=== PATIENT | male | born 1950 | race Caucasian/White ===

== ENCOUNTER 2017-01-02 10:42 | Observation (INO) | payer OTHER ==
[2017-01-02] MEDS ORDERED: Clopidogrel 75 MG Tab PO ONE (10:48)
[2017-01-02] MEDS ORDERED: Metoprolol Tartrate 5 MG/5 ML SDV IVPUSH ONE (10:48)
[2017-01-02] MEDS ORDERED: Aspirin 81 MG Tab.Chew CHEW ONE (10:48)
[2017-01-02] MEDS ORDERED: Sodium Chloride 0.9% 10 ML Syringe FLUSH PRN ×2 (10:48→13:09)
[2017-01-02] MEDS ORDERED: Famotidine 20 MG/2 ML SDV IVPUSH ONE (10:48)
--- NOTE | 2017-01-02 10:48 | EDM.PDOC ---
ED HISTORY OF PRESENT ILLNESS - General Chief Complaint: Chest Pain Stated Complaint: Chest tingling, dizzy, nausea Time Seen by Provider: 01/02/17 10:48 Source of Information: Reports: Patient, Old records ([facility] EMR. No paper hospital chart available.) History Limitations: Reports: No limitations - History of Present Illness INITIAL COMMENTS - FREE TEXT/NARRATIVE: Patient drove himself to the emergency room via private automobile for evaluation of nonspecific left-sided 5/10 chest pain/"prickly" sensation, which started at about 04:00 a.m. this morning at home. [facility] [place] and was advised to take aspirin and call 911, although he did not do so to this point. The above symptoms were associated with mild to moderate diaphoresis, heart flutter, nausea, and dizziness with some nausea at about 4 a.m. yesterday but no chest pain at that time. The patient denies any other chest pain/pressure , orthostasis, orthopnea,paresthesias, recent decreased exercise tolerance, or any other anginal-type symptoms, including no radiation of his chest discomfort. No recent history of abdominal pain, emesis, melena, gross hematochezia, or any food intolerance, including fatty foods, etc., however he did have 4 loose stools earlier this morning and did have some heartburn-type symptoms during the last couple of days, which was relieved by OTC antacids. No known exposure to infection, food poisoning, etc. The patient also denies any recent fever, cough, wheezing, dyspnea, etc.. His chest pain has completely resolved on arrival symptoms lasting for about 10 minutes. He did receive his influenza booster this season Symptom Onset Date: 01/02/17 Symptom Onset Time: 04:00 Timing/Duration: Reports: Improving Severity: moderate Location, General: Reports: chest. Denies: head, face, neck, abdomen, back, upper extremity, left, upper extremity, right, radiates to: Quality: Reports: Other (As above) Improves with: Reports: None Worsens with: Reports: None Context, General: Reports: Other (As above with symptoms starting at rest) Associated Symptoms (General): Reports: chest pain, diaphoresis, nausea/ vomiting (No emesis). Denies: confusion, cough, fever/chills, loss of appetite , malaise, shortness of breath, syncope, weakness Treatments INVE[employer]IGATION DIVISION [employer]GE[employer]: Reports: Other (see below) (None) - Related Data Allergies/ADRs: Allergies Allergy/AdvReac Type Severity Reaction Status Date / Time No Known Allergies Allergy Verified 01/02/17 12:12 Home Meds: Home Meds Finasteride [Proscar] 5 mg PO DAILY 01/02/17 [History] Ibuprofen [Advil] 400 mg PO Q6H PRN 01/02/17 [History] Lovastatin 60 mg PO BEDTIME 01/02/17 [History] Past Medical History HEENT History: Reports: Hard of hearing, Impaired vision, Other (see below). Denies: Allergic rhinitis, Cataract, Glaucoma, Macular degeneration, Retinal detachment Other HEENT History: Patient was glasses, no hearing aid therapy with probable beginning presbycusis Cardiovascular History: Reports: High cholesterol. Denies: Aneurysm, Arrhythmia , Blood clots/VTE/DVT, CAD, Heart murmur, Hypertension, SC, Pacemaker, PVD, Syncope Respiratory History: Reports: Intubation, previous, Other (see below). Denies: Asthma, Bronchitis, recurrent, COPD, PE, Pneumonia, recurrent, Pneumothorax, Sleep apnea Other Respiratory History: Pediatric surgery as below Gastrointestinal History: Reports: Colon polyp, GERD, Other (see below). 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 Denies: BPH, Chronic renal insuffiency, Renal calculus, Retention, urinary, STD, Urinary incontinence, UTI, recurrent Musculoskeletal History: Reports: Back pain, chronic, Osteoarthritis. Denies: Arthritis, Fracture, Gout, Neck pain, chronic, RA, SLE Neurological History: Reports: None. Denies: Cerebral aneurysms, Concussion, CVA, Head trauma, Migraines, MS, Parkinson's, Seizure, TIA Psychiatric History: Reports: None. Denies: Abuse, victim of, ADD, ADHD, Addiction, Anxiety, Dementia, Depression, Emotional problems, PTSD, Suicide attempt, Suicidal ideation Endocrine/Metabolic History: Reports: None. Denies: Diabetes, type I, Diabetes , type II, Hypothyroidism, IDDM Hematologic History: Reports: None. Denies: Anemia, Blood transfusion(s), Iron deficiency Immunologic History: Reports: None. Denies: AIDS, HIV, SLE Oncologic (Cancer) History: Reports: None. Denies: Basal cell carcinoma, Colon , Hodgkin's Lymphoma, Leukemia, Malignant melanoma, Non-Hodgkin's Lymphoma, Prostate, Squamous cell carcinoma Dermatologic History: Reports: None. Denies: Eczema, Psoriasis - Infectious Disease History Infectious Disease History: Reports: Chicken pox. Denies: C-difficile, Measles , Meningitis, Mononucleosis, MRSA, Mumps, Pertussis (whooping cough), Rheumatic Fever, Rubella, Scarlet fever, TB, VRE - Past Surgical History Head Surgeries/Procedures: Reports: None HEENT Surgical History: Reports: Naso-sinus surgery, Other (see below). Denies : Adenoidectomy, Cataract surgery, Eye surgery, Laser surgery, LASIK, Myringotomy w tube(s), Oral surgery, Tonsillectomy Other HEENT Surgeries/Procedures: Nasal septal orifice repair in about 2006 Cardiovascular Surgical History: Reports: None. Denies: Varicose, Vascular surgery Respiratory Surgical History: Reports: None. Denies: Lung Biopsies, Thoracentesis GI Surgical History: Reports: Appendectomy, Colon, Other (see below). Denies: Cholecystectomy, EGD, Hernia, abdominal, Hernia, inguinal, Hernia repair/other, Polypectomy Other GI Surgeries/Procedures: Appendectomy at age 22, colonoscopy in 2009 and in 2014 with polypectomies with each procedure for benign disease, esophageal repair for esophageal aplasia/hypoplasia shortly after Male Surgical History: Reports: Circumcision, Vasectomy, Other (see below). Denies: TURP-Transurethral resection of prostate Other Male Surgeries/Procedures: vasectomy in the 1980s, circumcision as an Endocrine Surgical History: Reports: None Neurological Surgical History: Reports: None. Denies: C-Spine, Discectomy, Laminectomy, Lumbar spine, Spinal fusion, Vertebroplasty Musculoskeletal Surgical History: Reports: None. Denies: Arthroscopic procedure , Carpal tunnel, Ganglion cyst, Joint replacement, ORIF, Shoulder surgery Oncologic Surgical History: Reports: None Dermatological Surgical History: Reports: None - Past Imaging History Past Imaging History: Reports: Sleep study (In about 2011 which was negative) Social & Family History - Family History HEENT: Reports: None. Denies: Allergic rhinitis, Glaucoma, Macular degeneration , Retinal detachment Cardiac: Reports: CAD, Hypertension, Other (see below). Denies: Afib, Aneurysm , Arrhythmia, Blood clots/VTE/DVT, Syncope Other Cardiac Family History: Father with fatal unknown type of heart disease at age unknown, father with hypertension Respiratory: Reports: COPD, Other (see below). Denies: PE, Sleep apnea Other Respiratory Family Hisory: Mother with COPD with no history of tobacco use with maternal grandfather with COPD however he did use tobacco GI: Reports: None. Denies: Celiac disease, Cholelithiasis, Colon polyps, GERD, GI bleed, Inflammatory bowel disease, Irritable bowel syndrome, PUD : Reports: None. Denies: Dialysis, Renal calculus, Renal disease/ insufficiency OBGYN: Reports: None Musculoskeletal: Reports: None. Denies: Gout, RA, SLE Neurological: Reports: TIA, Other (see below). Denies: Alzheimers disease, Cerebral aneurysms, CVA, Dementia, MS, Parkinson's, Seizure Other Neurological Family History: Father with TIAs Psychiatric: Reports: None. Denies: Abuse, victim of, ADD, ADHD, Anxiety, Depression, Psych hospitalization(s), PTSD, Suicide attempt Endocrine/Metabolic: Reports: Diabetes, type II, Other (see below). Denies: Diabetes, type I, Hypothyroidism, IDDM Other Endocrine/Metabolic Family History: Maternal grandmother with diabetes mellitus - Tobacco Use Smoking Status *Q: Never Smoker Smoking Cessation Information Provided To Patient: No Second Hand Smoke Exposure: No Second Hand Smoke Education Provided: No - Caffeine Use Caffeine Use: Reports: Coffee (3 cups per day), Soda (2 sodas per day). Denies : Energy drinks, Tea - Alcohol Use Alcohol Use History: Yes Days Per Week of Alcohol Use: 0 (No previous DWIs, problems with alcohol abuse, etc.) Number of Drinks Per Day: 2 (Usually mixed drinks about every 2 months) Total Drinks Per Week: 0 Alcohol Use in Last Twelve Months: Yes Alcohol Use Frequency: Socially - Recreational Drug Use Recreational Drug Use: No Drug Use in Last 12 Months: No Recreational Drug Type: Denies: Amphetamines (Speed), Cocaine, Heroin, Inhalants (Glues, Solvents, Aerosols), LSD (Acid), Marijuana/Hashish, Methamphetamine, Morphine - Living Situation & Occupation Living situation: Reports: (1975, 3 children), with family () Occupation: employed (White) ED ROS GENERAL - Review of Systems Review Of Systems: See Below Constitutional: Reports: diaphoresis. Denies: fever, chills, malaise, weakness , fatigue, night sweats, decreased appetite, weight loss, weight gain HEENT: Reports: Glasses. Denies: Contact Lenses, Dental pain, Ear discharge, Ear pain, Eye discharge, Throat pain, Throat swelling, Vertigo, Vision change Respiratory: Reports: No Symptoms. Denies: Shortness of Breath, Wheezing, Pleuritic Chest Pain, Cough, Sputum Cardiovascular: Reports: Chest pain, Lightheadedness, Palpitations. Denies: Blood pressure problem, Claudication, Dyspnea on exertion, Edema, Orthopnea, Syncope Endocrine: Reports: no symptoms. Denies: fatigue GI/Abdominal: Reports: Diarrhea, Nausea. Denies: Abdominal pain, Anorexia, Black stool, Bloody stool, Constipation, Decreased appetite, Difficulty swallowing, Distension, Flatus, Hematemesis, Hematochezia, Melena, Stool incontinence, Vomiting : Reports: no symptoms. Denies: discharge, dysuria, flank pain, hematuria, incontinence, pain, urgency, urinary retention Musculoskeletal: Reports: no symptoms. Denies: neck pain, shoulder pain, arm pain, back pain, leg pain Skin: Reports: diaphoresis. Denies: pallor, bruising, pruritis Neurological: Reports: No Symptoms, Dizziness. Denies: Confusion, Headache, Numbness, Paresthesia, Tingling, Weakness Psychiatric: Reports: No symptoms. Denies: Agitation, Anxiety, Confusion, Depression Hematologic/Lymphatic: Reports: no symptoms Immunologic: Reports: no symptoms ED EXAM, GENERAL - Physical Exam Exam: See Below Exam Limited By: No limitations General Appearance: alert, WD/WN, no apparent distress Eye Exam: bilateral eye: EOMI, normal inspection (No nystagmus), PERRL Ears: normal external exam, normal canal, hearing grossly normal, normal TMs Nose: normal inspection, normal mucosa, no blood Throat/Mouth: Normal inspection, Normal lips, Normal teeth, Normal gums, Normal oropharynx, Normal voice, No airway compromise. No: Dysphagia, Inflammation Head: atraumatic, normocephalic. No: facial swelling, facial tenderness, sinus tenderness Neck: normal inspection, supple, non-tender, full range of motion. No: carotid bruit, lymphadenopathy (L), lymphadenopathy (R), thyromegaly Respiratory/Chest: no respiratory distress, lungs clear, normal breath sounds, no accessory muscle use, chest non-tender. No: rales, pleural rub Cardiovascular: normal peripheral pulses, regular rate, rhythm, no edema, no gallop, no JVD, no murmur, no rub. No: gallop/S3, gallop/S4, friction rub Peripheral Pulses: 4+: radial (L), radial (R), dorsalis pedis (L), dorsalis pedis (R) GI/Abdominal: normal bowel sounds, soft, non tender, no organomegaly, no distention, no abnormal bruit, no mass. No: guarding (Male) Exam: Deferred Rectal (Males) Exam: Deferred Back Exam: normal inspection, full range of motion. No: CVA tenderness (L), CVA tenderness (R), muscle spasm Extremities: normal inspection, normal range of motion, non-tender, no pedal edema, normal capillary refill. No: pedal edema, Mc's Sign Neurological: alert, oriented, CN II-XII intact, normal cognition, normal gait, normal reflexes (Negative Babinski's), no motor/sensory deficits Psychiatric: normal affect, normal mood Skin Exam: Warm, Dry, Intact, Normal color, No rash. No: Diaphoretic, Ecchymosis, Jaundice, Pallor, Wound/incision Lymphatic: no adenopathy EKG INTERPRETATION EKG Date: 01/02/17 Time: 10:48 Rhythm: NSR Rate (beats/min): 87 [place]ley: normal (Left cardiac axis) P-wave: enlarged (Moderate diffuse biphasic P waves with extreme poor R-wave progression anteriorly) QRS: RBBB (QRS interval of 0.12 seconds [place] a complete right bundle branch block/repolarization changes with T-wave inversion in lead 3) ST-T: normal QT: normal MI/PQ Interval: 0.17 seconds Comparison: NA - no prior EKG EKG Interpretation Comments: 1. No acute ischemic change 2. Probable left atrial enlargement 3. Complete right bundle branch Course - Vital Signs Last Recorded V/S: Last Vital Signs Temp 37.0 C 01/02/17 11:55 Pulse 81 01/02/17 11:55 Resp 27 H 01/02/17 11:55 BP 122/70 01/02/17 11:55 Pulse Ox 96 01/02/17 11:55 Vital Signs - 24 hr 01/02/17 01/02/17 01/02/17 10:43 10:48 10:55 Temperature [ 37.0 C Oral] Pulse, Peripheral Pulse, 87 90 93 Peripheral [ Right Pulse Oximetry] Respiratory 23 H 20 22 H Rate Blood Pressure Blood Pressure 149/69 H 130/71 130/71 [Right Upper Arm] O2 Sat by Pulse 95 98 96 Oximetry O2 Sat by Pulse 96 Oximetry [ Nasal Cannula] 01/02/17 01/02/17 01/02/17 11:00 11:10 11:25 Temperature [ Oral] Pulse, 93 Peripheral Pulse, 80 81 Peripheral [ Right Pulse Oximetry] Respiratory 28 H 28 H Rate Blood Pressure 130/71 Blood Pressure 130/72 122/71 [Right Upper Arm] O2 Sat by Pulse 97 97 Oximetry O2 Sat by Pulse Oximetry [ Nasal Cannula] 01/02/17 01/02/17 11:40 11:55 Temperature [ 37.0 C Oral] Pulse, Peripheral Pulse, 80 81 Peripheral [ Right Pulse Oximetry] Respiratory 26 H 27 H Rate Blood Pressure Blood Pressure 122/64 122/70 [Right Upper Arm] O2 Sat by Pulse 97 96 Oximetry O2 Sat by Pulse Oximetry [ Nasal Cannula] - Orders/Labs/Meds Orders: Active Orders 24 hr Category Date Time Status Cardiac Monitoring [RC] . DIRECTED Care 01/02/17 10:48 Active EKG Documentation Completion [RC] ASDIRECTED Care 01/02/17 10:48 Active Oxygen Therapy, ED [RC] CONTINUOUS Care 01/02/17 10:48 Active Peripheral IV Care [RC] . DIRECTED Care 01/02/17 10:48 Active Pulse Oximetry [RC] CONTINUOUS Care 01/02/17 10:48 Active Up With Assistance [RC] PFP Care 01/02/17 10:48 Active Vital Signs [RC] PFP Care 01/02/17 10:48 Active Nothing per Oral Now Diet [DIET] Diet 01/02/17 Breakfast Active Chest 1V Frontal [CR] Stat Exams 01/02/17 10:48 Taken Sodium Chloride 0.9% [Saline Flush] Med 01/02/17 10:48 Active 10 ml FLUSH ASDIRECTED PRN Obtain Past Medical Record [OM.PC] Urgent Oth 01/02/17 10:48 Active Peripheral IV Insertion Adult [OM.PC] Stat Oth 01/02/17 10:48 Ordered Resuscitation Status Stat Resus Stat 01/02/17 10:48 Ordered Medication Orders Sodium Chloride (Saline Flush) 10 ml FLUSH ASDIRECTED PRN PRN Reason: Keep Vein Open Last Admin: 01/02/17 11:11 Dose: 10 ml Labs: Laboratory Tests 01/02/17 01/02/17 01/02/17 Range/Units 10:55 10:55 10:55 WBC 8.7 (4.0-10.2) K/uL RBC 4.96 (4.33-5.41) M/uL Hgb 15.3 (13.1-16.8) g/dL Hct 45.8 (39.0-49.0) % MCV 92.3 (84.0-98.0) fL MCH 30.8 (28.2-33.3) pg MCHC 33.4 (31.7-36.0) g/dL RDW 13.1 (11.2-14.1) % Plt Count 138 L (150-350) K/uL Neut % (Auto) 89.0 H (45.0-80.0) % Lymph % (Auto) 6.2 L (10.0-50.0) % Trigg % (Auto) 4.1 (2.0-14.0) % Eos % (Auto) 0.6 (0.0-5.0) % Baso % (Auto) 0.1 (0.0-2.0) % Neut # (Auto) 7.73 H (1.40-7.00) K/uL Lymph # (Auto) 0.54 (0.50-3.50) K/uL Trigg # (Auto) 0.36 (0.00-1.00) K/uL Eos # (Auto) 0.05 (0.00-0.50) K/uL Baso # (Auto) 0.01 (0.00-0.20) K/uL PT 10.3 (9.8-11.7) SEC INR 1.0 APTT 25.4 (23.5-30.0) SEC D-Dimer, Quantitative 131 (0-400) ng/mL Sodium (136-145) mmol/L Potassium (3.5-5.1) mmol/L Chloride (98-107) mmol/L Carbon Dioxide (21.0-32.0) mmol/L BUN (7-18) mg/dL Creatinine (0.51-1.17) mg/dL Est Cr Clr Drug Dosing Estimated GFR (MDRD) mL/min Glucose (74-106) mg/dL Lactic Acid (0.4-2.0) mmol/L Uric Acid (2.6-7.2) mg/dL Calcium (8.5-10.1) mg/dL Magnesium (1.8-2.4) mg/dL Total Bilirubin (0.2-1.0) mg/dL AST (15-37) U/L ALT (12-78) U/L Alkaline Phosphatase (46-116) IU/L Creatine Kinase (26-308) U/L Creatine Kinase Index (0.0-2.5) % CK-MB (CK-2) (0.00-3.60) ng/mL Troponin I (0.000-0.056) ng/mL [id number] Pept (0-125) pg/mL Total Protein (6.4-8.2) g/dL Albumin (3.4-5.0) g/dL TSH, Ultra Sensitive (0.358-3.740) mIU/mL H. pylori IgG Antibody (NEGATIVE) 01/02/17 01/02/17 01/02/17 Range/Units 10:55 10:55 10:55 WBC (4.0-10.2) K/uL RBC (4.33-5.41) M/uL Hgb (13.1-16.8) g/dL Hct (39.0-49.0) % MCV (84.0-98.0) fL MCH (28.2-33.3) pg MCHC (31.7-36.0) g/dL RDW (11.2-14.1) % Plt Count (150-350) K/uL Neut % (Auto) (45.0-80.0) % Lymph % (Auto) (10.0-50.0) % Trigg % (Auto) (2.0-14.0) % Eos % (Auto) (0.0-5.0) % Baso % (Auto) (0.0-2.0) % Neut # (Auto) (1.40-7.00) K/uL Lymph # (Auto) (0.50-3.50) K/uL Trigg # (Auto) (0.00-1.00) K/uL Eos # (Auto) (0.00-0.50) K/uL Baso # (Auto) (0.00-0.20) K/uL PT (9.8-11.7) SEC INR APTT (23.5-30.0) SEC D-Dimer, Quantitative (0-400) ng/mL Sodium 139 (136-145) mmol/L Potassium 4.1 (3.5-5.1) mmol/L Chloride 107 (98-107) mmol/L Carbon Dioxide 23.1 (21.0-32.0) mmol/L BUN 33 H (7-18) mg/dL Creatinine 1.11 (0.51-1.17) mg/dL Est Cr Clr Drug Dosing TNP Estimated GFR (MDRD) > 60 mL/min Glucose 109 H (74-106) mg/dL Lactic Acid 0.9 (0.4-2.0) mmol/L Uric Acid 5.5 (2.6-7.2) mg/dL Calcium 8.5 (8.5-10.1) mg/dL Magnesium 1.9 (1.8-2.4) mg/dL Total Bilirubin 0.9 (0.2-1.0) mg/dL AST 20 (15-37) U/L ALT 19 (12-78) U/L Alkaline Phosphatase 63 (46-116) IU/L Creatine Kinase 94 (26-308) U/L Creatine Kinase Index 1.4 (0.0-2.5) % CK-MB (CK-2) 1.30 (0.00-3.60) ng/mL Troponin I 0.002 (0.000-0.056) ng/mL [id number] Pept 157 H (0-125) pg/mL Total Protein 6.9 (6.4-8.2) g/dL Albumin 3.7 (3.4-5.0) g/dL TSH, Ultra Sensitive 1.497 (0.358-3.740) mIU/mL H. pylori IgG Antibody Negative (NEGATIVE) Meds: Medications Generic Name Dose Route Start Last Admin Trade Name Freq PRN Reason Stop Dose Admin Sodium Chloride 10 ml 01/02/17 10:48 01/02/17 11:11 Saline Flush FLUSH 10 ml ASDIRECTED PRN Administration Keep Vein Open Discontinued Medications Generic Name Dose Route Start Last Admin Trade Name Freq PRN Reason Stop Dose Admin Aspirin 324 mg 01/02/17 10:48 01/02/17 10:59 Aspirin CHEW 01/02/17 10:49 324 mg ONETIME ONE Administration Clopidogrel Bisulfate 300 mg 01/02/17 10:48 01/02/17 11:00 Plavix PO 01/02/17 10:49 300 mg ONETIME ONE Administration Famotidine 40 mg 01/02/17 10:48 01/02/17 11:00 Pepcid IVPUSH 01/02/17 10:49 40 mg ONETIME ONE Administration Metoprolol Tartrate 2.5 mg 01/02/17 10:48 01/02/17 11:00 Lopressor IVPUSH 01/02/17 10:49 2.5 mg ONETIME ONE Administration - Radiology Interpretation Free Text/Narrative:: classroom monitor shows normal sinus rhythm with heart rate in the 80s with no ectopy or arrhythmia Chest x-ray, portable, showed evidence of moderate COPD and moderate prominence of the right perihilar region with probable pulmonary hypertension. Additional 1 cm circular right upper lobe nodule with no pulmonary infiltrates, cardiomegaly, CHF, pneumothorax, effusions, etc. Departure - Departure Time of Disposition: 12:30 Disposition: Refer to Observation Condition: good Clinical Impression: Peptic reflux disease, Pulmonary nodule Chest pain Qualifiers: Chest pain type: unspecified Qualified Code(s): R07.9 - Chest pain, unspecified Hyperlipidemia Qualifiers: Hyperlipidemia type: unspecified Qualified Code(s): E78.5 - Hyperlipidemia, unspecified - Problem List & Annotations (1) Chest pain SNOMED Code(s): 82123675 Code(s): R07.9 - CHEST PAIN, UNSPECIFIED Status: Acute Priority: High Current Visit: Yes Onset Date: 01/02/17 Annotation/Comment:: Chest pain protocol initiated upon the patient's arrival in the emergency room. Initiate standard rule out SC orders with cardiology consultation depending on his clinical course. Probable outpatient Cardiolite stress test either in this facility or at the [facility] in [place]. Chest pain resolved on arrival as above. Qualifiers: Chest pain type: unspecified Qualified Code(s): R07.9 - Chest pain, unspecified (2) Hyperlipidemia SNOMED Code(s): 87228711 Code(s): E78.5 - HYPERLIPIDEMIA, UNSPECIFIED Status: Chronic Priority: Medium Current Visit: Yes Annotation/Comment:: Lipid panel in the a.m. Qualifiers: Hyperlipidemia type: unspecified Qualified Code(s): E78.5 - Hyperlipidemia , unspecified (3) Peptic reflux disease SNOMED Code(s): 08600759 Code(s): K21.9 - GASTRO-ESOPHAGEAL REFLUX DISEASE WITHOUT ESOPHAGITIS Status: Chronic Priority: Medium Current Visit: Yes Annotation/Comment:: H. pylori negative. IV Pepcid given in the emergency room as GI prophylaxis. Hemoccult strongly this hospitalization. Note previous history of esophageal surgery as an infant as above. Consider EGD once his cardiac status has been determined (4) Pulmonary nodule SNOMED Code(s): 935620662 Code(s): R91.1 - SOLITARY PULMONARY NODULE Status: Acute Priority: High Current Visit: Yes Onset Date: 01/02/17 Annotation/Comment:: CT of the chest to be conducted shortly after admission with stat read. Further treatment and evaluation depending on these results. No history of fever, bronchitic-type symptoms, etc. with mild left shift but no leukocytosis. Sputum to be collected (5) Osteoarthritis SNOMED Code(s): 458984920 Code(s): M19.90 - UNSPECIFIED OSTEOARTHRITIS, UNSPECIFIED SITE Status: Chronic Priority: Medium Current Visit: Yes Annotation/Comment:: Stable by history Qualifiers: Osteoarthritis location: multiple joints Osteoarthritis type: primary Qualified Code(s): M15.0 - Primary generalized (osteo)arthritis - Problem List Review Problem List Initiated/Reviewed/Updated: Yes - My Orders Last 24 Hours: My Active Orders 01/02/17 10:48 Cardiac Monitoring [RC] . DIRECTED EKG Documentation Completion [RC] ASDIRECTED Oxygen Therapy, ED [RC] CONTINUOUS Peripheral IV Care [RC] . DIRECTED Pulse Oximetry [RC] CONTINUOUS Up With Assistance [RC] PFP Vital Signs [RC] PFP Chest 1V Frontal [CR] Stat Sodium Chloride 0.9% [Saline Flush] 10 ml FLUSH ASDIRECTED PRN Obtain Past Medical Record [OM.PC] Urgent Peripheral IV Insertion Adult [OM.PC] Stat Resuscitation Status Stat 01/02/17 Breakfast Nothing per Oral Now Diet [DIET] - Assessment/Plan Admission H&P: Please use this note as an admission H&P Last 24 Hours: My Active Orders 01/02/17 10:48 Cardiac Monitoring [RC] . DIRECTED EKG Documentation Completion [RC] ASDIRECTED Oxygen Therapy, ED [RC] CONTINUOUS Peripheral IV Care [RC] . DIRECTED Pulse Oximetry [RC] CONTINUOUS Up With Assistance [RC] PFP Vital Signs [RC] PFP Chest 1V Frontal [CR] Stat Sodium Chloride 0.9% [Saline Flush] 10 ml FLUSH ASDIRECTED PRN Obtain Past Medical Record [OM.PC] Urgent Peripheral IV Insertion Adult [OM.PC] Stat Resuscitation Status Stat 01/02/17 Breakfast Nothing per Oral Now Diet [DIET] Assessment:: As above Plan: As above. Extensive precautions were given to the patient, who is in agreement with the treatment plan. The patient's condition is stable enough for observation status and general supervision.
[2017-01-02 11:25] LABS: CHLORIDE,CL 107 mmol/L (98-107); SODIUM,NA 139 mmol/L (136-145)
[2017-01-02] MEDS ORDERED: Temazepam 15 MG Cap PO PRN (13:09)
[2017-01-02] MEDS ORDERED: Acetaminophen 325 MG Tab PO PRN (14:00)
[2017-01-02] MEDS ORDERED: Iopamidol 612 MG/ML 100 ML Bottle IVPUSH ONE (14:15)
[2017-01-02] MEDS ORDERED: Potassium Chloride 20 MEQ Tab.ER PO SCH (18:00)
[2017-01-02] MEDS ORDERED: Loperamide 2 MG Tab PO PRN (19:44)
[2017-01-03] MEDS ORDERED: Finasteride 5 MG Tab PO SCH (08:00)
[2017-01-03 08:18] LABS: CHLORIDE,CL 107 mmol/L (98-107); SODIUM,NA 139 mmol/L (136-145)
[2017-01-03 08:26] VITALS: BP 103/63
--- NOTE | 2017-01-03 08:48 | PCM.DCSUM1 ---
Discharge Summary - Hospital Course HPI Initial Comments: See emergency room note/admission H&P Brief History: See emergency room note/admission H&P - Discharge Data Discharge Date: 01/03/17 Discharge Disposition: Home, Self-Care 01 Condition: Good - Discharge Diagnosis/Problem(s) (1) Chest pain SNOMED Code(s): 90057515 ICD Code: R07.9 - CHEST PAIN, UNSPECIFIED Status: Acute Priority: High Current Visit: Yes Onset Date: 01/02/17 Problem Details: EKG this morning does not show any evidence of acute ischemic changes with negative workup for acute OR, including serial cardiac enzymes x4. Patient denies any return of his chest pain or anginal-type symptoms. Note mild repolarization changes versus beginning incomplete right bundle branch block with occasional borderline bradycardia. Chest pain protocol was initiated upon the patient's arrival in the emergency room. Various therapeutic options were discussed with the patient, who has elected to have his Cardiolite stress test done with me in this facility in 2 weeks. Note that he is suffering from a mild viral illness at this time as below. Otherwise maintain a 50% maximum exercise restrictions until his cardiac status has been determined with this discussed extensively with the patient. Further cardiology consultation/workup depending on these test results. Patient will sign release of medical records to his normal providers at the [facility] [place] with no bed available in their facility yesterday. Qualifiers: Chest pain type: unspecified Qualified Code(s): R07.9 - Chest pain, unspecified (2) Pulmonary nodule SNOMED Code(s): 312404670 ICD Code: R91.1 - SOLITARY PULMONARY NODULE Status: Acute Priority: High Current Visit: Yes Onset Date: 01/02/17 Problem Details: CT of the chest to be conducted shortly after admission indicated a 0.55 cm right lower lobe pulmonary nodule of unknown character. Repeat CT scan of the chest with IV contrast in the next 6-12 months and/or refer patient to the pulmonary nodule clinic through the [facility] in [place]. Initially suspected right upper lobe pulmonary nodule is in fact osteophyte formation at the sternoclavicular junction by CT scan. Sputum collected for culture and sensitivity with results still pending (3) Hyperlipidemia SNOMED Code(s): 01273195 ICD Code: E78.5 - HYPERLIPIDEMIA, UNSPECIFIED Status: Chronic Priority: Medium Current Visit: Yes Problem Details: Lipid panel this morning is normal. Maintain heart healthy diet and continue current lovastatin Qualifiers: Hyperlipidemia type: unspecified Qualified Code(s): E78.5 - Hyperlipidemia , unspecified (4) Peptic reflux disease SNOMED Code(s): 62201893 ICD Code: K21.9 - GASTRO-ESOPHAGEAL REFLUX DISEASE WITHOUT ESOPHAGITIS Status: Chronic Priority: Medium Current Visit: Yes Problem Details: CT scan of the chest showed an incidental moderate hiatal hernia yesterday as below. H. pylori negative on admission. IV Pepcid given in the emergency room as GI prophylaxis. Initiate oral Protonix for now until followup with his regular providers at the [facility] in [place] as per discharge instructions. Hemoccult negative during this hospitalization. Note previous history of esophageal surgery as an as above. Consider EGD once his cardiac status has been determined depending on his clinical course (5) Osteoarthritis SNOMED Code(s): 806855250 ICD Code: M19.90 - UNSPECIFIED OSTEOARTHRITIS, UNSPECIFIED SITE Status: Chronic Priority: Medium Current Visit: Yes Problem Details: Stable by history Qualifiers: Osteoarthritis location: multiple joints Osteoarthritis type: primary Qualified Code(s): M15.0 - Primary generalized (osteo)arthritis (6) Hypoalbuminemia SNOMED Code(s): 415197046 ICD Code: E88.09 - OTH DISORDERS OF PLASMA-PROTEIN METABOLISM, NEC Status: Acute Priority: Medium Current Visit: Yes Onset Date: 01/03/17 Problem Details: Mild hypoalbuminemia this morning, although albumin level was normal yesterday. Observe for now with repeat blood work at followup with regular provider (7) Renal insufficiency SNOMED Code(s): 339555516, 604287569 ICD Code: N28.9 - DISORDER OF KIDNEY AND URETER, UNSPECIFIED Status: Acute Priority: Medium Current Visit: Yes Onset Date: 01/03/17 Problem Details: Mild renal insufficiency this morning with normal creatinine level yesterday. Observe for now with repeat blood work at followup with regular provider as per discharge instructions (8) Gastroenteritis SNOMED Code(s): 91393210 ICD Code: K52.9 - NONINFECTIVE GASTROENTERITIS AND COLITIS, UNSPECIFIED Status: Acute Priority: Medium Current Visit: Yes Onset Date: ~01/02/17 Problem Details: Mild viral gastroenteritis with mild fever this morning. Note to moderate diarrhea yesterday with resolution with Imodium therapy. He denies any abdominal pain, known exposure to infection, food poisoning, etc.. Encourage oral fluids hygiene precautions discussed. Influenza screen was normal this morning (9) BPH (benign prostatic hyperplasia) SNOMED Code(s): 880712911, 495927940 ICD Code: N40.0 - BENIGN PROSTATIC HYPERPLASIA WITHOUT LOWER URINRY TRACT SYMP Status: Chronic Priority: Medium Current Visit: Yes Problem Details : Nonsymptomatic. Continue current Proscar therapy Qualifiers: Prostatic enlargement morphology: non-nodular Lower urinary tract symptom presence: symptoms absent Qualified Code(s): N40.0 - Benign prostatic hyperplasia without lower urinary tract symptoms (10) Thrombocytopenia SNOMED Code(s): 890364847 ICD Code: D69.6 - THROMBOCYTOPENIA, UNSPECIFIED Status: Acute Priority: Medium Current Visit: Yes Onset Date: ~01/02/17 Problem Details: Borderline mild thrombocytopenia. Observe for now with repeat blood work at followup (11) Hypocalcemia SNOMED Code(s): 3434644 ICD Code: E83.51 - HYPOCALCEMIA Status: Acute Priority: Medium Current Visit: Yes Onset Date: 01/03/17 Problem Details: Mild hypocalcemia. Tums at bedtime, which will also serve as GI prophylaxis for his moderate hiatal hernia - Patient Summary/Data Operative Procedure(s) Performed: None Complications: None Consults: None Labs Pending at D/C: Sputum for culture and sensitivity Recommended Follow-up Testing/Procedures: As per discharge instructions Planned Operative Procedure(s) after DC: None Hospital Course: The patient was admitted to observation status with initiation of standard rule out OR orders with negative workup as above. Patient did not have any return of his anginal-type symptoms with chest pain protocol initiated in the emergency room. Patient is somewhat febrile this morning likely secondary to viral GE with resolution of his diarrhea as above. Symptomatic relief for now. Otherwise further plan treatment as above. No complications during this hospitalization. - Patient Instructions Diet: Heart Healthy Diet Diet, Other: Encourage oral fluids including Gatorade, etc. until symptoms resolve Activity: No Strenuous Activities (50% maximum exercise restriction until your heart status has been determined) Driving: May Drive Today Showering/Bathing: May Shower Notify Provider of: Fever, Increased Pain, Nausea and/or Vomiting Other/Special Instructions: 1. Followup in this facility on 01/19/17 for Cardiolite stress test with results to be released to your regular providers at the [facility]. 2. Schedule followup with your regular provider at the [facility] for 1 week after the above stress test for discussion of scan results with recommended CBC and comprehensive metabolic panel at that time. Bring these discharge instructions with you to that visit. 3. Tylenol 650 mg by mouth every 4 hours and/or OTC ibuprofen 2-3 tabs by mouth every 6 hours with food as directed./needed. 4. Hygiene issues as discussed. 5. Sign release of medical records from this hospitalization to your regular providers at the [facility] - Discharge Plan Home Medications: Home Meds Finasteride [Proscar] 5 mg PO DAILY 01/02/17 [History] Ibuprofen [Advil] 400 mg PO Q6H PRN 01/02/17 [History] Lovastatin 60 mg PO BEDTIME 01/02/17 [History] Patient Handouts: Nonspecific Chest Pain, [id number], Hiatal Hernia, Viral Gastroenteritis, Adult, [id number]-pb-[id number] Forms: ED Department Discharge Referrals: PCP,None [Primary Care Provider] - - Discharge Summary/Plan Comment DC Time >30 min.: Yes (Coordination of care) Discharge Summary/Plan Comment: As above - General Info Date of Service: 01/03/17 Admission Dx/Problem (Free Text: Chest pain Functional Status: Reports: pain controlled, tolerating diet, ambulating, urinating, new symptoms (Some persistent diarrhea yesterday however resolved with Imodium yesterday evening). Denies: incentive spirometry Numeric/FACES Score: 0 - Review of Systems General: Reports: Fever (Mild this morning), Night Sweats. Denies: Weakness, Fatigue, Chills, Appetite (Appetite good) HEENT: Reports: post nasal drip, rhinitis, other (Mild dizziness). Denies: dysphasia, ear pain, eye pain, headaches, sinus congestion, sore throat, visual changes Pulmonary: Reports: no symptoms. Denies: shortness of breath, pleuritic chest pain, cough, sputum, hemoptysis, wheezing Cardiovascular: Reports: Lightheadedness (Mild). Denies: Chest Pain, Palpitations, Dyspnea on Exertion, Orthopnea, PND, Edema Gastrointestinal: Reports: Nausea (Mild). Denies: Abdominal pain, Constipation , Decreased appetite, Diarrhea (Resolved as above), Difficulty swallowing, Flatus, Hematochezia, Melena Genitourinary: Reports: no symptoms. Denies: dysuria, frequency, burning, pain , urgency, incontinence, hematuria, retention, flank pain Musculoskeletal: Reports: no symptoms. Denies: neck pain, shoulder pain, arm pain, hand pain, leg pain, joint pain, joint swelling Skin: Reports: no symptoms, other (Tattoos). Denies: jaundice, pallor, diaphoresis, bruising, pruritis, rash Neurological: Reports: Dizziness. Denies: Confusion, Headache, Numbness, Paresthesia, Seizure, Tingling, Weakness Psychiatric: Reports: no symptoms - Patient Data Vitals - Most Recent: Last Vital Signs Temp 36.9 C 01/03/17 08:00 Pulse 51 L 01/03/17 08:00 Resp 20 01/03/17 08:00 BP 103/63 01/03/17 08:00 Pulse Ox 96 01/03/17 08:00 Vital Signs - 24 hr 01/02/17 01/02/17 01/02/17 10:43 10:48 10:55 Temperature [ 37.0 C Oral] Pulse, Peripheral Pulse, Peripheral [ Left Pulse Oximetry] Pulse, 87 90 93 Peripheral [ Right Pulse Oximetry] Respiratory 23 H 20 22 H Rate Blood Pressure Blood Pressure [Left Upper Arm ] Blood Pressure 149/69 H 130/71 130/71 [Right Upper Arm] O2 Sat by Pulse 95 98 96 Oximetry O2 Sat by Pulse 96 Oximetry [ Nasal Cannula] 01/02/17 01/02/17 01/02/17 11:00 11:10 11:25 Temperature [ Oral] Pulse, 93 Peripheral Pulse, Peripheral [ Left Pulse Oximetry] Pulse, 80 81 Peripheral [ Right Pulse Oximetry] Respiratory 28 H 28 H Rate Blood Pressure 130/71 Blood Pressure [Left Upper Arm ] Blood Pressure 130/72 122/71 [Right Upper Arm] O2 Sat by Pulse 97 97 Oximetry O2 Sat by Pulse Oximetry [ Nasal Cannula] 01/02/17 01/02/17 01/02/17 11:40 11:55 13:05 Temperature [ 37.0 C 36.9 C Oral] Pulse, Peripheral Pulse, Peripheral [ Left Pulse Oximetry] Pulse, 80 81 77 Peripheral [ Right Pulse Oximetry] Respiratory 26 H 27 H 25 H Rate Blood Pressure Blood Pressure [Left Upper Arm ] Blood Pressure 122/64 122/70 118/60 [Right Upper Arm] O2 Sat by Pulse 97 96 99 Oximetry O2 Sat by Pulse Oximetry [ Nasal Cannula] 01/02/17 01/02/17 01/02/17 13:09 15:57 19:28 Temperature [ 36.7 C 37.1 C Oral] Pulse, Peripheral Pulse, 62 Peripheral [ Left Pulse Oximetry] Pulse, 55 L Peripheral [ Right Pulse Oximetry] Respiratory 14 12 Rate Blood Pressure Blood Pressure 118/73 125/72 [Left Upper Arm ] Blood Pressure [Right Upper Arm] O2 Sat by Pulse 96 Oximetry O2 Sat by Pulse Oximetry [ Nasal Cannula] 01/03/17 01/03/17 01/03/17 00:00 04:00 08:00 Temperature [ 36.8 C 38.1 C 36.9 C Oral] Pulse, Peripheral Pulse, 56 L 61 51 L Peripheral [ Left Pulse Oximetry] Pulse, Peripheral [ Right Pulse Oximetry] Respiratory 18 18 20 Rate Blood Pressure Blood Pressure 107/53 L 104/52 L 103/63 [Left Upper Arm ] Blood Pressure [Right Upper Arm] O2 Sat by Pulse 98 98 96 Oximetry O2 Sat by Pulse Oximetry [ Nasal Cannula] Weight - Most Recent: 77.167 kg Imaging Impressions - Last 24 hrs: Chest x-ray, portable, on 01/02/17 showed evidence of moderate COPD and moderate prominence of the right perihilar region with probable pulmonary hypertension. Additional 1 cm circular right upper lobe nodule with no pulmonary infiltrates, cardiomegaly, CHF, pneumothorax, effusions, etc. CT of the chest with IV contrast on 01/02/17 showed a 0.5 cm nodule in the right lower lobe with prominent osteophytes associated with both clavicular heads. Incidental moderate hiatal hernia also noted 911 telecommunicator showed intermittent mild sinus bradycardia in the high 50s with otherwise normal sinus rhythm in the 60s to 80s with no ectopy or arrhythmia Lab Results - Last 24 hrs: Laboratory Results - last 24 hr 01/02/17 01/02/17 01/03/17 Range/Units 17:00 22:45 07:00 WBC 5.5 (4.0-10.2) K/uL RBC 4.79 (4.33-5.41) M/uL Hgb 15.1 (13.1-16.8) g/dL Hct 44.6 (39.0-49.0) % MCV 93.1 (84.0-98.0) fL MCH 31.5 (28.2-33.3) pg MCHC 33.9 (31.7-36.0) g/dL RDW 13.3 (11.2-14.1) % Plt Count 137 L (150-350) K/uL Neut % (Auto) 74.4 (45.0-80.0) % Lymph % (Auto) 12.8 (10.0-50.0) % [place] % (Auto) 11.3 (2.0-14.0) % Eos % (Auto) 1.3 (0.0-5.0) % Baso % (Auto) 0.2 (0.0-2.0) % Neut # (Auto) 4.07 (1.40-7.00) K/uL Lymph # (Auto) 0.70 (0.50-3.50) K/uL [place] # (Auto) 0.62 (0.00-1.00) K/uL Eos # (Auto) 0.07 (0.00-0.50) K/uL Baso # (Auto) 0.01 (0.00-0.20) K/uL Sodium (136-145) mmol/L Potassium (3.5-5.1) mmol/L Chloride (98-107) mmol/L Carbon Dioxide (21.0-32.0) mmol/L BUN (7-18) mg/dL Creatinine (0.51-1.17) mg/dL Est Cr Clr Drug Dosing mL/min Estimated GFR (MDRD) mL/min Glucose (74-106) mg/dL Hemoglobin A1c (4.3-5.7) % Calcium (8.5-10.1) mg/dL Total Bilirubin (0.2-1.0) mg/dL AST (15-37) U/L ALT (12-78) U/L Alkaline Phosphatase (46-116) IU/L Creatine Kinase 61 50 (26-308) U/L Creatine Kinase Index 1.8 1.8 (0.0-2.5) % CK-MB (CK-2) 1.10 0.90 (0.00-3.60) ng/mL Troponin I 0.002 0.001 (0.000-0.056) ng/mL Ejh-K-Krfqfyvjubh Pept (0-125) pg/mL Total Protein (6.4-8.2) g/dL Albumin (3.4-5.0) g/dL Triglycerides (30-150) mg/dL Cholesterol (100-200) mg/dL LDL Cholesterol, Calc (0-100) mg/dL HDL Cholesterol (40-60) mg/dL 01/03/17 01/03/17 Range/Units 07:00 07:00 WBC (4.0-10.2) K/uL RBC (4.33-5.41) M/uL Hgb (13.1-16.8) g/dL Hct (39.0-49.0) % MCV (84.0-98.0) fL MCH (28.2-33.3) pg MCHC (31.7-36.0) g/dL RDW (11.2-14.1) % Plt Count (150-350) K/uL Neut % (Auto) (45.0-80.0) % Lymph % (Auto) (10.0-50.0) % [place] % (Auto) (2.0-14.0) % Eos % (Auto) (0.0-5.0) % Baso % (Auto) (0.0-2.0) % Neut # (Auto) (1.40-7.00) K/uL Lymph # (Auto) (0.50-3.50) K/uL [place] # (Auto) (0.00-1.00) K/uL Eos # (Auto) (0.00-0.50) K/uL Baso # (Auto) (0.00-0.20) K/uL Sodium 139 (136-145) mmol/L Potassium 4.0 (3.5-5.1) mmol/L Chloride 107 (98-107) mmol/L Carbon Dioxide 23.0 (21.0-32.0) mmol/L BUN 34 H (7-18) mg/dL Creatinine 1.21 H (0.51-1.17) mg/dL Est Cr Clr Drug Dosing 63.68 mL/min Estimated GFR (MDRD) > 60 mL/min Glucose 111 H (74-106) mg/dL Hemoglobin A1c 5.3 (4.3-5.7) % Calcium 8.1 L (8.5-10.1) mg/dL Total Bilirubin 0.4 (0.2-1.0) mg/dL AST 14 L (15-37) U/L ALT 17 (12-78) U/L Alkaline Phosphatase 56 (46-116) IU/L Creatine Kinase 39 (26-308) U/L Creatine Kinase Index 1.5 (0.0-2.5) % CK-MB (CK-2) 0.60 (0.00-3.60) ng/mL Troponin I 0.002 (0.000-0.056) ng/mL Suk-O-Dcoqghhslbk Pept 99 (0-125) pg/mL Total Protein 6.4 (6.4-8.2) g/dL Albumin 3.3 L (3.4-5.0) g/dL Triglycerides 64 (30-150) mg/dL Cholesterol 143 (100-200) mg/dL LDL Cholesterol, Calc 75 (0-100) mg/dL HDL Cholesterol 55 (40-60) mg/dL Laboratory Tests 01/02/17 01/02/17 01/02/17 Range/Units 10:55 10:55 10:55 WBC 8.7 (4.0-10.2) K/uL RBC 4.96 (4.33-5.41) M/uL Hgb 15.3 (13.1-16.8) g/dL Hct 45.8 (39.0-49.0) % MCV 92.3 (84.0-98.0) fL MCH 30.8 (28.2-33.3) pg MCHC 33.4 (31.7-36.0) g/dL RDW 13.1 (11.2-14.1) % Plt Count 138 L (150-350) K/uL Neut % (Auto) 89.0 H (45.0-80.0) % Lymph % (Auto) 6.2 L (10.0-50.0) % [place] % (Auto) 4.1 (2.0-14.0) % Eos % (Auto) 0.6 (0.0-5.0) % Baso % (Auto) 0.1 (0.0-2.0) % Neut # (Auto) 7.73 H (1.40-7.00) K/uL Lymph # (Auto) 0.54 (0.50-3.50) K/uL [place] # (Auto) 0.36 (0.00-1.00) K/uL Eos # (Auto) 0.05 (0.00-0.50) K/uL Baso # (Auto) 0.01 (0.00-0.20) K/uL PT 10.3 (9.8-11.7) SEC INR 1.0 APTT 25.4 (23.5-30.0) SEC D-Dimer, Quantitative 131 (0-400) ng/mL Sodium (136-145) mmol/L Potassium (3.5-5.1) mmol/L Chloride (98-107) mmol/L Carbon Dioxide (21.0-32.0) mmol/L BUN (7-18) mg/dL Creatinine (0.51-1.17) mg/dL Est Cr Clr Drug Dosing Estimated GFR (MDRD) mL/min Glucose (74-106) mg/dL Hemoglobin A1c (4.3-5.7) % Lactic Acid (0.4-2.0) mmol/L Uric Acid (2.6-7.2) mg/dL Calcium (8.5-10.1) mg/dL Magnesium (1.8-2.4) mg/dL Total Bilirubin (0.2-1.0) mg/dL AST (15-37) U/L ALT (12-78) U/L Alkaline Phosphatase (46-116) IU/L Creatine Kinase (26-308) U/L Creatine Kinase Index (0.0-2.5) % CK-MB (CK-2) (0.00-3.60) ng/mL Troponin I (0.000-0.056) ng/mL Tka-O-Wugcadkvwdi Pept (0-125) pg/mL Total Protein (6.4-8.2) g/dL Albumin (3.4-5.0) g/dL Triglycerides (30-150) mg/dL Cholesterol (100-200) mg/dL LDL Cholesterol, Calc (0-100) mg/dL HDL Cholesterol (40-60) mg/dL TSH, Ultra Sensitive (0.358-3.740) mIU/mL H. pylori IgG Antibody (NEGATIVE) 01/02/17 01/02/17 01/02/17 Range/Units 10:55 10:55 10:55 WBC (4.0-10.2) K/uL RBC (4.33-5.41) M/uL Hgb (13.1-16.8) g/dL Hct (39.0-49.0) % MCV (84.0-98.0) fL MCH (28.2-33.3) pg MCHC (31.7-36.0) g/dL RDW (11.2-14.1) % Plt Count (150-350) K/uL Neut % (Auto) (45.0-80.0) % Lymph % (Auto) (10.0-50.0) % [place] % (Auto) (2.0-14.0) % Eos % (Auto) (0.0-5.0) % Baso % (Auto) (0.0-2.0) % Neut # (Auto) (1.40-7.00) K/uL Lymph # (Auto) (0.50-3.50) K/uL [place] # (Auto) (0.00-1.00) K/uL Eos # (Auto) (0.00-0.50) K/uL Baso # (Auto) (0.00-0.20) K/uL PT (9.8-11.7) SEC INR APTT (23.5-30.0) SEC D-Dimer, Quantitative (0-400) ng/mL Sodium 139 (136-145) mmol/L Potassium 4.1 (3.5-5.1) mmol/L Chloride 107 (98-107) mmol/L Carbon Dioxide 23.1 (21.0-32.0) mmol/L BUN 33 H (7-18) mg/dL Creatinine 1.11 (0.51-1.17) mg/dL Est Cr Clr Drug Dosing TNP Estimated GFR (MDRD) > 60 mL/min Glucose 109 H (74-106) mg/dL Hemoglobin A1c (4.3-5.7) % Lactic Acid 0.9 (0.4-2.0) mmol/L Uric Acid 5.5 (2.6-7.2) mg/dL Calcium 8.5 (8.5-10.1) mg/dL Magnesium 1.9 (1.8-2.4) mg/dL Total Bilirubin 0.9 (0.2-1.0) mg/dL AST 20 (15-37) U/L ALT 19 (12-78) U/L Alkaline Phosphatase 63 (46-116) IU/L Creatine Kinase 94 (26-308) U/L Creatine Kinase Index 1.4 (0.0-2.5) % CK-MB (CK-2) 1.30 (0.00-3.60) ng/mL Troponin I 0.002 (0.000-0.056) ng/mL Cqt-L-Mzvathpmfve Pept 157 H (0-125) pg/mL Total Protein 6.9 (6.4-8.2) g/dL Albumin 3.7 (3.4-5.0) g/dL Triglycerides (30-150) mg/dL Cholesterol (100-200) mg/dL LDL Cholesterol, Calc (0-100) mg/dL HDL Cholesterol (40-60) mg/dL TSH, Ultra Sensitive 1.497 (0.358-3.740) mIU/mL H. pylori IgG Antibody Negative (NEGATIVE) 01/02/17 01/02/17 01/03/17 Range/Units 17:00 22:45 07:00 WBC 5.5 (4.0-10.2) K/uL RBC 4.79 (4.33-5.41) M/uL Hgb 15.1 (13.1-16.8) g/dL Hct 44.6 (39.0-49.0) % MCV 93.1 (84.0-98.0) fL MCH 31.5 (28.2-33.3) pg MCHC 33.9 (31.7-36.0) g/dL RDW 13.3 (11.2-14.1) % Plt Count 137 L (150-350) K/uL Neut % (Auto) 74.4 (45.0-80.0) % Lymph % (Auto) 12.8 (10.0-50.0) % [place] % (Auto) 11.3 (2.0-14.0) % Eos % (Auto) 1.3 (0.0-5.0) % Baso % (Auto) 0.2 (0.0-2.0) % Neut # (Auto) 4.07 (1.40-7.00) K/uL Lymph # (Auto) 0.70 (0.50-3.50) K/uL [place] # (Auto) 0.62 (0.00-1.00) K/uL Eos # (Auto) 0.07 (0.00-0.50) K/uL Baso # (Auto) 0.01 (0.00-0.20) K/uL PT (9.8-11.7) SEC INR APTT (23.5-30.0) SEC D-Dimer, Quantitative (0-400) ng/mL Sodium (136-145) mmol/L Potassium (3.5-5.1) mmol/L Chloride (98-107) mmol/L Carbon Dioxide (21.0-32.0) mmol/L BUN (7-18) mg/dL Creatinine (0.51-1.17) mg/dL Est Cr Clr Drug Dosing Estimated GFR (MDRD) mL/min Glucose (74-106) mg/dL Hemoglobin A1c (4.3-5.7) % Lactic Acid (0.4-2.0) mmol/L Uric Acid (2.6-7.2) mg/dL Calcium (8.5-10.1) mg/dL Magnesium (1.8-2.4) mg/dL Total Bilirubin (0.2-1.0) mg/dL AST (15-37) U/L ALT (12-78) U/L Alkaline Phosphatase (46-116) IU/L Creatine Kinase 61 50 (26-308) U/L Creatine Kinase Index 1.8 1.8 (0.0-2.5) % CK-MB (CK-2) 1.10 0.90 (0.00-3.60) ng/mL Troponin I 0.002 0.001 (0.000-0.056) ng/mL Ptn-N-Ssuuqympgdm Pept (0-125) pg/mL Total Protein (6.4-8.2) g/dL Albumin (3.4-5.0) g/dL Triglycerides (30-150) mg/dL Cholesterol (100-200) mg/dL LDL Cholesterol, Calc (0-100) mg/dL HDL Cholesterol (40-60) mg/dL TSH, Ultra Sensitive (0.358-3.740) mIU/mL H. pylori IgG Antibody (NEGATIVE) 01/03/17 01/03/17 Range/Units 07:00 07:00 WBC (4.0-10.2) K/uL RBC (4.33-5.41) M/uL Hgb (13.1-16.8) g/dL Hct (39.0-49.0) % MCV (84.0-98.0) fL MCH (28.2-33.3) pg MCHC (31.7-36.0) g/dL RDW (11.2-14.1) % Plt Count (150-350) K/uL Neut % (Auto) (45.0-80.0) % Lymph % (Auto) (10.0-50.0) % [place] % (Auto) (2.0-14.0) % Eos % (Auto) (0.0-5.0) % Baso % (Auto) (0.0-2.0) % Neut # (Auto) (1.40-7.00) K/uL Lymph # (Auto) (0.50-3.50) K/uL [place] # (Auto) (0.00-1.00) K/uL Eos # (Auto) (0.00-0.50) K/uL Baso # (Auto) (0.00-0.20) K/uL PT (9.8-11.7) SEC INR APTT (23.5-30.0) SEC D-Dimer, Quantitative (0-400) ng/mL Sodium 139 (136-145) mmol/L Potassium 4.0 (3.5-5.1) mmol/L Chloride 107 (98-107) mmol/L Carbon Dioxide 23.0 (21.0-32.0) mmol/L BUN 34 H (7-18) mg/dL Creatinine 1.21 H (0.51-1.17) mg/dL Est Cr Clr Drug Dosing 63.68 Estimated GFR (MDRD) > 60 mL/min Glucose 111 H (74-106) mg/dL Hemoglobin A1c 5.3 (4.3-5.7) % Lactic Acid (0.4-2.0) mmol/L Uric Acid (2.6-7.2) mg/dL Calcium 8.1 L (8.5-10.1) mg/dL Magnesium (1.8-2.4) mg/dL Total Bilirubin 0.4 (0.2-1.0) mg/dL AST 14 L (15-37) U/L ALT 17 (12-78) U/L Alkaline Phosphatase 56 (46-116) IU/L Creatine Kinase 39 (26-308) U/L Creatine Kinase Index 1.5 (0.0-2.5) % CK-MB (CK-2) 0.60 (0.00-3.60) ng/mL Troponin I 0.002 (0.000-0.056) ng/mL Bgx-O-Bkayeizcgnn Pept 99 (0-125) pg/mL Total Protein 6.4 (6.4-8.2) g/dL Albumin 3.3 L (3.4-5.0) g/dL Triglycerides 64 (30-150) mg/dL Cholesterol 143 (100-200) mg/dL LDL Cholesterol, Calc 75 (0-100) mg/dL HDL Cholesterol 55 (40-60) mg/dL TSH, Ultra Sensitive (0.358-3.740) mIU/mL H. pylori IgG Antibody (NEGATIVE) [facility] Results - Last 24 hrs: Microbiology 01/03/17 04:00 Stool Occult Blood ([facility]) - Final Stool / Feces NEGATIVE OCCULT BLOOD Microbiology 01/03/17 08:30 Nasopharyngeal Swab - Nare, Left Influenza Type A Antigen Screen - Final NEGATIVE INFLUENZA A VIRUS AG 01/03/17 08:30 Nasopharyngeal Swab - Nare, Left Influenza Type B Antigen Screen - Final NEGATIVE INFLUENZA B VIRUS AG 01/03/17 04:00 Stool / Feces Stool Occult Blood ([facility]) - Final NEGATIVE OCCULT BLOOD Med Orders - Current: Current Medications Acetaminophen (Tylenol) 650 mg PO Q4H PRN PRN Reason: Fever Last Admin: 01/03/17 07:58 Dose: 650 mg Finasteride (Proscar) 5 mg PO DAILY BJORN Last Admin: 01/03/17 07:59 Dose: 5 mg Loperamide HCl (Imodium Ad) 2 mg PO Q4H PRN PRN Reason: Diarrhea Last Admin: 01/02/17 20:31 Dose: 2 mg Lovastatin (Mevacor) 60 mg PO BEDTIME BJORN Last Admin: 01/02/17 20:31 Dose: 60 mg Sodium Chloride (Saline Flush) 10 ml FLUSH ASDIRECTED PRN PRN Reason: Keep Vein Open Last Admin: 01/02/17 11:11 Dose: 10 ml Sodium Chloride (Saline Flush) 10 ml FLUSH Q12HR PRN PRN Reason: Keep Vein Open Temazepam (Restoril) 15 mg PO BEDTIME PRN PRN Reason: Insomnia Discontinued Medications Aspirin (Aspirin) 324 mg CHEW ONETIME ONE Stop: 01/02/17 10:49 Last Admin: 01/02/17 10:59 Dose: 324 mg Clopidogrel Bisulfate (Plavix) 300 mg PO ONETIME ONE Stop: 01/02/17 10:49 Last Admin: 01/02/17 11:00 Dose: 300 mg Famotidine (Pepcid) 40 mg IVPUSH ONETIME ONE Stop: 01/02/17 10:49 Last Admin: 01/02/17 11:00 Dose: 40 mg Iopamidol (Isovue-300 (61%)) 100 ml IVPUSH ONETIME ONE Stop: 01/02/17 14:16 Last Admin: 01/02/17 15:07 Dose: 100 ml Metoprolol Tartrate (Lopressor) 2.5 mg IVPUSH ONETIME ONE Stop: 01/02/17 10:49 Last Admin: 01/02/17 11:00 Dose: 2.5 mg Potassium Chloride (Klor-Con M20) 20 meq PO TID BJORN - Exam Quality Assessment: Reports: supplemental oxygen, DVT prophylaxis. Denies: urine catheter, skin breakdown, restraints General: Reports: alert, oriented, cooperative, no acute distress HEENT: Reports: Pupils equal, Pupils reactive, EOMI, Mucous membr. moist/pink, Other (Mild clear nasal drainage bilaterally with dentition in somewhat poor repair) Neck: Reports: supple, trachea midline, no JVD, no thyromegaly. Denies: +2 carotid pulse wo bruit, lymphadenopathy Lungs: Reports: Clear to auscultation, Normal respiratory effort. Denies: Stridor Cardiovascular: Reports: Regular Rate, Regular Rhythm, No Murmurs. Denies: Gallops, Rubs Abdomen: Reports: bowel sounds present, soft, no tenderness, no distension. Denies: guarding, CVA tenderness (Male) Exam: Deferred Rectal (Males) Exam: Deferred Back Exam: Reports: normal inspection, full range of motion. Denies: CVA tenderness (L), CVA tenderness (R), muscle spasm Extremities: Reports: no edema, normal pulses, no tenderness/swelling, no calf tenderness, other (Tattoo left arm) Skin: Reports: warm, dry, intact. Denies: ecchymosis Neurological: Reports: no new focal deficit, other (No clinical orthostasis) Psy/Mental Status: Reports: alert, normal affect, normal mood EKG INTERPRETATION EKG Date: 01/03/17 Time: 07:44 Rhythm: NSR (Mild bradycardia) Rate (beats/min): 55 [place]: normal (Left cardiac axis) P-wave: enlarged (Mild diffuse biphasic P waves) QRS: wide (QRS interval of 0.10 seconds representing repolarization changes versus borderline incomplete right bundle branch block with T-wave inversion in leads 3 and V1) ST-T: normal QT: normal KS/PQ Interval: 0.18 seconds with resolution of previous poor R-wave progression in the anterior leads Comparison: change from previous EKG (As above since last EKG on 01/02/17) EKG Interpretation Comments: 1. No acute ischemic changes 2. Possible left atrial enlargement 3. Repolarization changes versus borderline incomplete right bundle branch block *Q Meaningful Use (DIS) - VTE *Q VTE Criteria *Q: - Stroke *Q Stroke Criteria *Q: - AMI *Q AMI Criteria *Q:
--- NOTE | 2017-01-03 09:23 | PCM.SN ---
- Free Text/Narrative Note: Note that the patient's medical therapy was not indicated on today's discharge summary. Patient will continue his previous home medications with initiation of OTC Prilosec 20 mg by mouth every morning on an empty, which may be increased to a twice a day regimen as needed, and also initiate OTC Extra Strength Tums 500 mg tablets, 2 tabs by mouth each bedtime
== END 2017-01-03 10:15 | disposition home or self-care (01) ==
LOC: LL.ED 10:42 → LL.MS 11:58
PROVIDERS: ADMIT Family Medicine; ATTEND Family Medicine
DX: R07.9 Chest pain, unspecified (principal); R91.1 Solitary pulmonary nodule; E78.5 Hyperlipidemia, unspecified; K21.9 Gastro-esophageal reflux disease without esophagitis; M15.0 Primary generalized (osteo)arthritis; E88.09 Other disorders of plasma-protein metabolism, not elsewhere classified; N28.9 Disorder of kidney and ureter, unspecified; K52.9 Noninfective gastroenteritis and colitis, unspecified; N40.0 Benign prostatic hyperplasia without lower urinary tract symptoms; D69.6 Thrombocytopenia, unspecified; E83.51 Hypocalcemia; Z79.899 Other long term (current) drug therapy; Z90.49 Acquired absence of other specified parts of digestive tract; Z98.890 Other specified postprocedural states; Z98.52 Vasectomy status
CPT/HCPCS: 36415; 71010; 71260; 80053; 80061; 82272; 82550; 82553; 83036; 83605; 83735; 83880; 84443; 84484; 84550; 85025; 85379; 85610; 85730; 86318; 87804; 93005; 96374; 96375; 99285; A9270; G0378; J7050; Q9967; 99217; 99220; J3490; S0028